=== PATIENT | male | born 1950 | race Caucasian/White ===

== ENCOUNTER 2024-11-03 06:07 | Day surgery (SDC) | payer OTHER ==
[2024-11-03] MEDS ORDERED: ELIQUIS5 M2 PO (06:25)
[2024-11-03] MEDS ORDERED: MIRT15 PO (06:26)
[2024-11-03] MEDS ORDERED: SOTO80 PO (06:27)
[2024-11-03] MEDS ORDERED: NS 1,000 ML IV ONE (06:31)
[2024-11-03 06:43] VITALS: BP 133/97
[2024-11-03 07:12] VITALS: BP 116/83
[2024-11-03 07:15] VITALS: BP 110/92
--- NOTE | 2024-11-03 07:17 | NUR ---
ASSUMED CARE FROM ANESTHESIA. PT AWAKE AND VERBALIZING WELL.
[2024-11-03 07:21] VITALS: BP 129/81
[2024-11-03 07:27] VITALS: BP 114/99
[2024-11-03 07:30] VITALS: BP 103/80
--- NOTE | 2024-11-03 07:41 | NUR ---
PT VERBALIZED UNDERSTANDING OF WRITTEN AND VERBAL D/C INST. SB 45-52BPM. AMB IN RM /S DIFFICULTY. HRT RATE WHILE AMB 55BPM.
[2025-01-17] MEDS ORDERED: METO25ER PO (15:11)
== END 2024-11-03 23:00 | disposition home or self-care (01) ==
LOC: MHTC 06:07
DX: I48.19 Other persistent atrial fibrillation (principal); I45.10 Unspecified right bundle-branch block; I11.0 Hypertensive heart disease with heart failure; I50.30 Unspecified diastolic (congestive) heart failure; I25.2 Old myocardial infarction; Z79.01 Long term (current) use of anticoagulants; Z79.899 Other long term (current) drug therapy; Z91.010 Allergy to peanuts; Z91.018 Allergy to other foods
CPT/HCPCS: 92960; 93005; 93010; J7030

== ENCOUNTER 2025-01-18 11:16 | Day surgery (SDC) | payer OTHER ==
[2025-01-18] VITALS (9 sets, daily range): BP systolic 115–137; BP diastolic 65–96
[~2025-01-18] VITALS: Ht 177.8 cm; Wt 91.0 kg
[~2025-01-18 11:16] MED LIST: Bupivacaine 0.5% HCl 5 MG/ML 30MLVIAL ONE; CeFAZolin Sodium 2,000 MG in NS 100 ML IV SCH; ELIQUIS5 M2 PO; Lactated Ringer's 1,000 ML IV SCH; METO25ER PO; MIRT15 PO; SOTO80 PO
[2025-01-18] MEDS ORDERED: propofoL 20 ML IV ONE (11:55)
[2025-01-18] MEDS ORDERED: Rocuronium Bromide 10 MG/ML 5ML Injection IV ONE ×2 (11:56→13:45)
[2025-01-18] MEDS ORDERED: FentaNYL Citrate 50 MCG/ML 2 ML Injection ONE (12:02)
[2025-01-18] MEDS ORDERED: Phenylephrine HCl 100 MCG/ML-NS 10MLSYR (1MG/10ML) ONE (12:15)
[2025-01-18] MEDS ORDERED: Dexamethasone Sod Phos 10 MG/ML 1ML VIAL ONE (12:16)
[2025-01-18] MEDS ORDERED: Ondansetron HCl 2 MG / ML 2ML Vial ONE (12:16)
[2025-01-18] MEDS ORDERED: Bupivacaine 0.5% HCl 5 MG/ML 30MLVIAL INJ ONE (12:23)
[2025-01-18] MEDS ORDERED: Sugammadex Sodium 200 MG/2ML SDV (100 MG/ML) ONE (14:16)
[2025-01-18] MEDS ORDERED: OxyCODONE 5 mg/Acetamin 325 mg TABLET PO PRN (14:35)
--- NOTE | 2025-01-18 15:52 | NUR ---
Dressing to procedure site clean, dry, intact with no visible drainage, swelling, erythema or bruising noted. Discharge instructions reviewed with patient. Patient verbalizes understanding. Copy given to patient to take home. Patient States Post-Procedure ride home has been arranged. Discharged via wheelchair to private car for ride home.
== END 2025-01-18 23:00 | disposition home or self-care (01) ==
LOC: ORSCMMR 11:16 → ORD 11:30 → ORSCMMR 12:45
PROVIDERS: Surgery
PROC: 8E0W4CZ Robotic Assisted Procedure of Trunk Region, Percutaneous Endoscopic Approach (ICD-10-PCS; principal; 2025-01-18 12:45)
PROC: 0YUA4JZ Supplement Bilateral Inguinal Region with Synthetic Substitute, Percutaneous Endoscopic Approach (ICD-10-PCS; principal; 2025-01-18 12:45)
PROC: 0YUE4JZ Supplement Bilateral Femoral Region with Synthetic Substitute, Percutaneous Endoscopic Approach (ICD-10-PCS; principal; 2025-01-18 12:45)
DX: K40.00 Bilateral inguinal hernia, with obstruction, without gangrene, not specified as recurrent (principal); K41.00 Bilateral femoral hernia, with obstruction, without gangrene, not specified as recurrent; K66.0 Peritoneal adhesions (postprocedural) (postinfection); I10 Essential (primary) hypertension; E03.9 Hypothyroidism, unspecified; Z79.899 Other long term (current) drug therapy
CPT/HCPCS: 88305; A9270; C1781; J1100; J2371; J2405; J2704; J3010